=== PATIENT | male | born 1990 | race African-American/Black ===

== ENCOUNTER 2020-08-29 00:24 | Emergency (ER) | payer SELFPAY ==
[~2020-08-29] VITALS: Ht 177.8 cm; Wt 72.7 kg
[~2020-08-29 00:24] MED LIST: KEFLEX500 MG PO
[2020-08-29] MEDS ORDERED: GENTAMICIN SULF5 ML OD (00:45)
[2020-08-29] MEDS ORDERED: CEPHALEXIN500 MG PO (00:45)
[2020-08-29 00:57] VITALS: BP 125/77
== END 2020-08-29 01:10 | disposition home or self-care (01) | DRG 125 ==
LOC: ED 00:24
DX: H10.9 Unspecified conjunctivitis (principal); I88.9 Nonspecific lymphadenitis, unspecified

== ENCOUNTER 2021-10-30 22:09 | Emergency (ER) | payer OTHER ==
[~2021-10-30] VITALS: Ht 177.8 cm; Wt 72.0 kg
[~2021-10-30 22:09] MED LIST changes: +CEPHALEXIN500 MG PO; +GENTAMICIN SULF5 ML OD
[2021-10-30 23:00] VITALS: BP 106/62
[2021-10-31] MEDS ORDERED: IBUPROFEN600 MG PO (00:08)
[2021-10-31 00:12] VITALS: BP 106/62
== END 2021-10-31 00:22 | disposition home or self-care (01) | DRG 563 ==
LOC: ED 22:09
DX: S29.012A Strain of muscle and tendon of back wall of thorax, initial encounter (principal); S20.212A Contusion of left front wall of thorax, initial encounter; F17.200 Nicotine dependence, unspecified, uncomplicated; V49.40XA Driver injured in collision with unspecified motor vehicles in traffic accident, initial encounter